=== PATIENT | male | born 1985 | race Caucasian/White ===

== ENCOUNTER 2017-10-11 14:31 | Emergency (ER) | payer OTHER ==
[2017-10-11 14:52] VITALS: BP 140/81; PULSE 105; TEMP 97.7; BMI 44.9
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
[2017-10-11] MEDS ORDERED: IBUPROFEN 600 MG TABLET (FP) PO ONE ×2 (15:48→15:52)
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
== END 2017-10-11 16:13 | disposition home or self-care (01) ==
LOC: JERFT 14:31
DX: S13.4XXA Sprain of ligaments of cervical spine, initial encounter (principal); V57.5XXA Driver of pick-up truck or van injured in collision with fixed or stationary object in traffic accident, initial encounter; Y92.414 Local residential or business street as the place of occurrence of the external cause; Y99.0 Civilian activity done for income or pay; Y93.89 Activity, other specified
CPT/HCPCS: 99281-25